=== PATIENT | female | born 2000 | race Caucasian/White ===

== ENCOUNTER 2025-01-28 20:48 | Emergency (ER) | payer MEDICAID ==
[~2025-01-28] VITALS: Ht 165.1 cm; Wt 60.0 kg
[2025-01-28 20:49] VITALS: BP 128/63; PULSE 138; RESP 20; TEMP 37; O2SAT 99
== END 2025-01-28 21:40 | disposition left against medical advice (07) ==
LOC: ER 20:48
DX: F10.129 Alcohol abuse with intoxication, unspecified (principal); Z53.21 Procedure and treatment not carried out due to patient leaving prior to being seen by health care provider; Y90.9 Presence of alcohol in blood, level not specified

== ENCOUNTER 2025-01-29 00:20 | Emergency (ER) | payer MEDICAID ==
[~2025-01-29] VITALS: Ht 160 cm; Wt 70.0 kg
[2025-01-29 00:21] VITALS: TEMP 36.7
[2025-01-29 01:40] VITALS: BP 128/69; PULSE 146; RESP 29; TEMP 97.5; O2SAT 100
== END 2025-01-29 01:50 | disposition home or self-care (01) ==
LOC: ER 00:20 → CMPBEDREQ 10:36
DX: R45.1 Restlessness and agitation (principal)
CPT/HCPCS: 99284; 99291